=== PATIENT | female | born 1990 | race Caucasian/White ===

== ENCOUNTER 2018-06-01 09:20 | Emergency (ER) | payer MEDICAID ==
[~2018-06-01] VITALS: Ht 165.1 cm; Wt 104.3 kg
[2018-06-01 09:20] VITALS: BP 152/101
--- NOTE | 2018-06-01 09:20 | NUR ---
[facility] TO ER BED 05
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
[2018-06-01] MEDS ORDERED: NACL 0.9% 1,000 ML IV ONE (10:00)
--- NOTE | 2018-06-01 10:10 | NUR ---
POISON CONTROL CALLED, SPOKE WITH SAGAR, INSTRUCTIONS GIVEN TO MONITOR PATIENT AND PROVIDE IV FLUIDS AND BENZOS, URINE TOX, VS AND MONITOR UNTIL VS LOOK STABLE. EDMD MEDINA MADE AWARE.
--- NOTE | 2018-06-01 11:00 | NUR ---
PT ON BED IN SUPINE POSITION, EYES OPEN, RESPIS E/U, DENIES CP/SOB AT THIS TIME. PATIENT POSITIONED FOR COMFORT; HOB ELEVATED; BEDRAILS UP X2; BED DOWN, PT ON FULL MONITOR, WILL CONTINUE TO MONITOR CLOSELY.
[2018-06-01 11:18] LABS: APPEARANCE,URINE CLOUDY (CLEAR); BILIRUBIN,URINE 1+ (NEGATIVE); BLOOD, URINE 3+ (NEGATIVE); COLOR,URINE YELLOW (YELLOW); LEUKOCYTE ESTERASE ,URINE TRACE (NEGATIVE); NITRITE, URINE NEGATIVE (NEGATIVE); PH,URINE 6.5 (5.0-9.0); UGLUCOSE NEGATIVE (NEGATIVE)
[2018-06-01 11:26] LABS: BARBITURATE, URINE NEG. ng/ml (NEG <=200); BENZODIAZEPINE, URINE NEG. ng/mL (NEG <=200); CANNABINOID, URINE NEG. ng/mL (NEG <=50); COCAINE, URINE NEG. ng/mL (NEG <=300); OPIATE, URINE NEG. ng/mL (NEG <=2000); PHENCYCLIDINE SCREEN,URINE NEG. ng/mL (NEG <=25)
--- NOTE | 2018-06-01 11:30 | NUR ---
PT AMBULATED TO BATHROOM WITH STEADY GAIT
[2018-06-01 11:50] LABS: RBC,URINE 11-20 (MOD) /HPF (0-5)
[2018-06-01 12:50] VITALS: BP 125/75
--- NOTE | 2018-06-01 12:52 | NUR ---
Patient discharged with v/s stable. Written and verbal after care instructions given and explained. Patient verbalized understanding. Ambulatory with steady gait. All questions addressed prior to discharge. Advised to follow up with PMD.
== END 2018-06-01 12:52 | disposition home or self-care (01) ==
LOC: MED 09:20
DX: F15.10 Other stimulant abuse, uncomplicated (principal)
CPT/HCPCS: 80305; 81001; 87086; 99283; J7030; 96360